=== PATIENT | female | born 1965 | race Caucasian/White ===

== ENCOUNTER 2016-11-12 08:30 | Day surgery (SDC) | payer OTHER ==
[~2016-11-12] VITALS: Ht 161.3 cm; Wt 86.0 kg
[~2016-11-12 08:30] MED LIST: BALANCED SALT SOLN 15 ML OPH IRRIG ONE; CARB15DR RIGHT EYE; CHOLESTEROL MED; FLUO5DRO RIGHT EYE; IBUP400T22 PO; MITOMYCIN OP ONE; RANI25VI IJ
--- NOTE | 2016-11-12 08:41 | HPN ---
Date/Time of Note Date/Time of Note DATE: 11/12/16 TIME: 08:41 Interval H&P Admission Note Pt. seen H&P reviewed: No system changes ADELA MENEZES MD Nov 12, 2016 08:41
[2016-11-12 09:10] VITALS: BP 137/74; PULSE 56; RESP 19; Ht 161.3 cm; Wt 86.0 kg
[2016-11-12] MEDS ORDERED: LEVO125T75 PO (09:12)
[2016-11-12] MEDS ORDERED: MELO-110 PO (09:13)
[2016-11-12] MEDS ORDERED: NOL20 PO (09:13)
[2016-11-12] MEDS ORDERED: RANI150T5 PO (09:14)
[2016-11-12] MEDS ORDERED: ERGO500037 PO (09:14)
[2016-11-12] MEDS ORDERED: GEMF600T60 PO (09:14)
[2016-11-12] MEDS ORDERED: ASPI81TA3 PO (09:15)
[2016-11-12] MEDS ORDERED: LIDOCAINE 2%/EPI 30 ML INJ ONE (09:37)
[2016-11-12] MEDS ORDERED: TETRACAINE 0.5% 4 ML OPH ONE (09:38)
[2016-11-12] MEDS ORDERED: METHYLENE BLUE 1% 10 ML INJ ONE (09:38)
[2016-11-12] MEDS ORDERED: TOBRAMYCIN/DEXAMETH 3.5 GM OPH OINT ONE ×2 (09:38→10:03)
--- NOTE | 2016-11-12 09:44 | OPR ---
Date/Time of Note Date/Time of Note DATE: 11/12/16 TIME: 09:41 Operative Report Preoperative Diagnosis pterygium left eye Postoperative Diagnosis same Operation/Procedure Performed [id number] of pterygium Surgeon: ADELA MENEZES MD Anesthesia Type: MAC Transfusion Required: no Specimen: none Grafts/Implants: none Complications: no ADELA MENEZES MD Nov 12, 2016 09:44
[2016-11-12] MEDS ORDERED: PHENYLephrine 10% 5 ML OPH RIGHT EYE ONE (09:50)
[2016-11-12] MEDS ORDERED: LIDOCAINE 2%/EPI MPF (SDV) 20 ML VIAL INJ ONE (09:50)
[2016-11-12] MEDS ORDERED: ONDANSETRON 4 MG INJ IV PRN (10:00)
[2016-11-12] MEDS ORDERED: OXYCODONE/ACETAMINOPHEN (5/325) TAB PO PRN (10:00)
[2016-11-12] MEDS ORDERED: LABETALOL HCL 20MG INJ IV PRN (10:00)
[2016-11-12] MEDS ORDERED: FENTAnyl 50 MCG/ML VIAL IV PRN (10:00)
[2016-11-12] MEDS ORDERED: HYDROmorphONE (0.2 MG/ML) 10ML SYG IV PRN (10:00)
[2016-11-12] MEDS ORDERED: hydrALAzine 20 MG INJ IV PRN (10:00)
[2016-11-12] MEDS ORDERED: DIPHENHYDRAMINE 50 MG INJ IV PRN (10:00)
[2016-11-12] MEDS ORDERED: MIDAZOLAM 1 MG/ML 2 ML INJ ONE (10:03)
[2016-11-12] MEDS ORDERED: LIDOCAINE 2% (SDV) 5 ML INJ ONE (10:03)
[2016-11-12] MEDS ORDERED: PROPOFOL 20 ML ONE (10:03)
[2016-11-12] MEDS ORDERED: FENTAnyl 50 MCG/ML VIAL ONE (10:03)
[2016-11-12] MEDS ORDERED: TOBRAMYCIN/DEXAMETH 3.5 GM OPH OINT RIGHT EYE ONE (10:22)
[2016-11-12 10:46] VITALS: BP 108/59; PULSE 52; RESP 14
[2016-11-12 10:49] VITALS: BP 108/55; PULSE 50; RESP 14
[2016-11-12 10:54] VITALS: BP 102/55; PULSE 50; RESP 14
[2016-11-12 11:20] VITALS: BP 142/75; PULSE 56; RESP 16
--- NOTE | 2016-11-12 11:49 | OPR ---
DATE OF OPERATION: 11/12/2016 SURGEON: Emma Sutherland MD LOCKER ROOM SUPERVISOR: None. ANESTHESIOLOGIST: PREOPERATIVE DIAGNOSIS: Pterygium, right eye. POSTOPERATIVE DIAGNOSIS: Pterygium, right eye. OPERATION: Excision of pterygium, right eye; application of mitomycin C; closure of defect with conjunctival advancement flaps. DESCRIPTION OF PROCEDURE: Following standard preparation and draping of the patient, a solid-blade lid speculum was placed for immobilization of the lids. A small amount of 2% Xylocaine with epinephrine was injected beneath the body of the pterygium so as to elevate it from the underlying sclerae. After adequate local anesthesia was obtained, Leonel scissors were simply used to make an incision along the edges of the pterygium, amputating the body approximately 1 cm posterior to the limbus. At the limbus, the major portion of the tissue was simply excised using sharp scissors. Using a rotating edward bur, all of the scar tissue on the cornea was removed down to clear cornea. At this point, bleeding points were secured with the heat cautery. Mitomycin C (0.2 mg/ml) was now applied to the limbal regions for three minutes. After three minutes, the eye was copiously irrigated with balanced salt solution. A peritomy was now performed both superiorly and inferiorly and relaxing incisions made at approximately the 6 and 12 o'clock positions. The undermining conjunctiva was now pulled both superiorly and inferiorly so as to close the previously made defect from which the pterygium had been removed. Sutures of interrupted 8-0 Vicryl were used and a bite of the underlying sclera was taken so as to ensure adequate maintenance of the flaps in a nonmovable position. Betadine 5% solution was placed on the eye, along with TobraDex ointment. A light pressure dressing was applied, and the patient returned to the recovery room in satisfactory condition. Dictated By: Emma Sutherland MD /rell/rick /Document#: [id number]
--- NOTE | 2016-11-13 09:58 | OPR ---
DATE OF OPERATION: 11/13/2016 SURGEON: Emma Sutherland MD HOUSE PAINTER HELPER: None. ANESTHESIOLOGIST: PREOPERATIVE DIAGNOSIS: Senile nuclear sclerotic cataract, left eye. POSTOPERATIVE DIAGNOSIS: Senile nuclear sclerotic cataract, left eye. OPERATION: Kelman phacoemulsification with implantation of intraocular lens, left eye. PROCEDURE: Following standard preparation and draping of the patient, an aspirating lid speculum was placed for immobilization of the lids. A Superblade incision was made for access into the anterior chamber. Approximately 0.5 ml of 1% unpreserved Xylocaine was instilled into the anterior chamber, and after approximately 15 seconds, this was replaced with Viscoat. A clear corneal incision was then made using the 3.2 mm keratome, following which an anterior circular capsulorrhexis was made. The major portion of the lens cortex and nucleus was then dislocated from the capsular bag using hydrodissection. The KPE tip was introduced into the eye, and controlling movements of the lens with a two-handed technique, the major portion of the lens cortex and nucleus was removed, maintaining the lens in the plane of the iris. The remaining cortical material was removed via the irrigating-aspirating instrument. The capsular bag and the anterior chamber were re-formed using Viscoat. The proper power lens was then placed within the capsular bag. The viscoelastic was then removed from the eye and the eye re-formed with balanced salt solution. One 10-0 Vicryl suture was then used to ensure closure of the corneal incision. The eye was re-formed to normal pressure using balanced salt solution. The eye and cul-de-sacs were now simply flooded with 5% Betadine solution. One drop of Vigamox and one drop of Betagan solution were instilled into the eye. A light pressure dressing was applied, and the patient was returned to the recovery room in satisfactory condition. Dictated By: Emma Sutherland MD /rell/rick /Document#: [id number]
== END 2016-11-12 12:00 | disposition home or self-care (01) ==
LOC: SDS 08:30
PROVIDERS: ATTEND Ophthalmology
DX: H11.001 Unspecified pterygium of right eye (principal); E78.5 Hyperlipidemia, unspecified
CPT/HCPCS: 65426; J2250; J3010; J9280; Z7512; Z7610

== ENCOUNTER 2016-11-26 20:11 | Emergency (ER) | payer OTHER ==
[~2016-11-26] VITALS: Ht 160 cm; Wt 87.0 kg
[~2016-11-26 20:11] MED LIST changes: +ASPI81TA3 PO; -BALANCED SALT SOLN 15 ML OPH IRRIG ONE; -CARB15DR RIGHT EYE; -CHOLESTEROL MED; +ERGO500037 PO; -FLUO5DRO RIGHT EYE; +GEMF600T60 PO; -IBUP400T22 PO; -MITOMYCIN OP ONE; +RANI150T5 PO; -RANI25VI IJ
[2016-11-26 20:56] VITALS: Ht 160 cm; Wt 87.0 kg
[2016-11-27] MEDS ORDERED: ONDANSETRON (ODT) 4 MG TAB ODT STA (00:47)
[2016-11-27] MEDS ORDERED: ACETAMINOPHEN 500 MG TAB PO STA (00:47)
--- NOTE | 2016-11-27 01:01 | ERD ---
ER Documentation Chief Complaint Date/Time DATE: 11/27/16 TIME: 00:59 Chief Complaint abd pain with n/v and headache, dizziness since yesterday HPI 51-year-old Urdu-speaking female. An scientific recruiter was used. The patient presents with multiple complaints. At triage she noted abdominal pain however she denies this currently, consider language barrier. She describes that since yesterday she has had a gradual onset bandlike headache that is diffuse with moderate pain associated with 2 episodes of nonbloody nonbilious emesis. She denies abdominal pain or diarrhea. No chest pain or shortness of breath. She also describes mild myalgias. No recent sick contacts travel or antibiotics. No rash or neck stiffness. ROS All systems reviewed and are negative except as per history of present illness. Medications Home Meds Active Scripts Ondansetron (Ondansetron Odt) 4 Mg Tab.rapdis, 4 MG PO Q6H Y for NAUSEA AND/OR VOMITING, #30 TAB Prov:CHAS CARRERA MD 11/27/16 Ibuprofen* (Motrin*) 800 Mg Tab, 800 MG PO Q6H Y for PAIN AND OR ELEVATED TEMP, #30 TAB Prov:CHAS CARRERA MD 11/27/16 Reported Medications Aspirin* (Aspirin* Chew) 81 Mg Tab.chew, 81 MG PO DAILY, TAB.CHEW 11/12/16 Gemfibrozil* (Gemfibrozil*) 600 Mg Tablet, 600 MG PO QPM, TAB 11/12/16 Ranitidine Hcl* (Ranitidine Hcl*) 150 Mg Tablet, 150 MG PO HS, #30 TAB 11/12/16 Ergocalciferol (Vitamin D2) (VITAMIN D2) 50,000 Unit Capsule, 52263 UNIT PO EVERY THURSDAY, CAP 11/12/16 Allergies Allergies: Coded Allergies: No Known Allergy (Unverified , 11/12/16) PMhx/Soc History of Surgery: Yes (C-SEC X3, RT SHPULDER SX, RY EYE PTERYGUIM SX) Anesthesia Reaction: No Hx Neurological Disorder: No Hx Respiratory Disorders: No Hx Cardiac Disorders: No Hx Psychiatric Problems: No Hx Miscellaneous Medical Probl: Yes (HIGH CHOLESTEROL) Hx Alcohol Use: No Hx Substance Use: No Hx Tobacco Use: No FmHx Family History: No diabetes Physical Exam Vitals Vital Signs Date Time Temp Pulse Resp B/P Pulse Ox O2 Delivery O2 Flow Rate FiO2 11/27/16 01:19 99.0 78 18 130/76 97 Room Air 11/26/16 20:56 99.0 62 18 130/76 97 Physical Exam General: Well developed, well nourished, no acute distress Head: Normocephalic, atraumatic. Eyes: Pupils equally reactive, EOM intact ENT: Moist mucous membranes Neck: Supple, no lymphadenopathy Respiratory: Lungs clear bilaterally, no distress Cardiovascular: RRR, no murmurs, rubs, or gallops Abdominal: Soft, non-tender, non-distended, no peritoneal signs : Deferred MSK: No edema, no unilateral swelling, 5/5 strength Neurologic: Alert and oriented, moving all extremities, normal speech, no focal weakness, no cerebellar signs, no meningismus Skin: No rash Psych: Normal mood Results 24 hrs Laboratory Tests Test 11/27/16 01:00 Urine Color STRAW Urine Clarity CLEAR Urine pH 6.0 Urine Specific [place] 1.004 Urine Ketones NEGATIVEmg/dL Urine Nitrite NEGATIVEmg/dL Urine Bilirubin NEGATIVEmg/dL Urine Urobilinogen NEGATIVEmg/dL Urine Leukocyte Esterase NEGATIVELeu/ul Urine Microscopic RBC 0/HPF Urine Microscopic WBC 1/HPF Urine Bacteria FEW/HPF Urine Hemoglobin 1+mg/dL Urine Glucose NEGATIVEmg/dL Urine Total Protein NEGATIVEmg/dl Current Medications Medications (Trade) Dose Ordered Sig/Jessie Route PRN Reason Start Time Stop Time Status Last Admin Dose Admin Acetaminophen (Tylenol Tab) 1,000 mg ONCE STAT PO 11/27/16 00:47 11/27/16 00:49 DC 11/27/16 01:10 Ondansetron HCl (Zofran Odt) 4 mg ONCE STAT ODT 11/27/16 00:47 11/27/16 00:50 DC 11/27/16 01:09 Procedures/MDM EKG, MONITORS, & DIAGNOSTIC IMAGING: CT brain: No acute intracranial process per radiology LAB INTERPRETATION: No evidence of urinary tract infection MEDICAL DECISION MAKING: The patient presents with a headache and nausea vomiting. She denies any abdominal pain and on exam she does not have any abdominal pain. Unclear why this was documented in triage. The patient's only complaint is nausea vomiting and headache. The patient's headache is unlikely related to serious etiology. The patient does not exhibit any clinical signs or symptoms, and has no risk factors to suggest headache etiology such as subarachnoid hemorrhage, acute vertebral or carotid dissection, intracranial mass, epidural, subdural hematoma , dural venous sinus thrombosis, giant cell arteritis, or pseudotumor cerebri. The patient's description is consistent with a tension type headache though she denies any stressors at home. She has no fever here but does describe mild myalgias. Consider possible mild viral process. The patient does not exhibit any signs or symptoms concerning for meningitis. No indication for lumbar puncture. A CT brain given the patient's vomiting would be appropriate to rule out mass or hemorrhage but again low clinical concern for this. ER COURSE: Tylenol and Toradol provided with improved symptoms. CT imaging negative. Urinalysis negative. The patient is safe for discharge with close primary care follow-up. I kept the patient and/or family informed of laboratory and diagnostic imaging results throughout the emergency room course. DISPOSITION PLAN: [] CONSULTATION: [] Departure Diagnosis: Primary Impression: Headache Headache type: tension-type Headache chronicity pattern: acute headache Intractability: not intractable Qualified Code: G44.209 - Acute non intractable tension-type headache Condition: Stable CHAS CARRERA MD Nov 27, 2016 01:00
[2016-11-27 01:19] VITALS: BP 130/76; PULSE 78; RESP 18; TEMP 99
--- NOTE | 2016-11-27 01:39 | RADRPT ---
PROCEDURE: Noncontrast CT Head. CLINICAL INDICATION: Headache TECHNIQUE: Noncontrast CT of the head was obtained. The administered radiation dose was CTDI vol = 45 mGy, DLP = 720 mGy-cm. COMPARISON: No pertinent prior examinations were submitted for comparison. FINDINGS: The ventricles and cortical sulci are mildly enlarged. There is mild decreased attenuation within t he periventricular and subcortical white matter compatible with chronic microvascular changes. There is no acute intracranial hemorrhage or extra-axial fluid collection. There is no mass effect . No midline shift is identified. There is no loss of pedroza-white differentiation to suggest acute in farction. The orbits are within normal limits. The paranasal sinuses are well aerated. No destructive osseous lesion is identified. IMPRESSION: No acute findings. Mild diffuse parenchymal volume loss and chronic microvascular changes. RPTAT: HIKT .Jose Ball MD, Date Time Electronically viewed and signed by .Jose Ball MD, on 11/27/2016 01:39 .T/
[2016-11-27 02:07] LABS: ADD UMIC YES; UR ASCORBIC ACID NEGATIVE (NEGATIVE); UR BACTERIA FEW /HPF (NONE SEEN); UR BILIRUBIN (Dip) NEGATIVE (NEGATIVE); UR BLOOD (Dip) 1+ mg/dL (NEGATIVE); UR CLARITY CLEAR (CLEAR); UR COLOR STRAW (YELLOW); UR GLUCOSE (Dip) NEGATIVE (NEGATIVE); UR KETONES (Dip) NEGATIVE (NEGATIVE); UR LEUKOCYTE ESTERASE (Dip) NEGATIVE Leu/ul (NEGATIVE); UR NITRITE (Dip) NEGATIVE (NEGATIVE); UR RBC 0 /HPF (0-5); UR SPECIFIC GRAVITY (Dip) 1.004 (1.003-1.030); UR TOTAL PROTEIN (Dip) NEGATIVE (NEGATIVE); UR UROBILINOGEN (Dip) NEGATIVE (NEGATIVE)
[2016-11-27] MEDS ORDERED: KETOROLAC 15 MG INJ IV STA (02:35)
[2016-11-27] MEDS ORDERED: IBUP800T25 PO (02:36)
[2016-11-27] MEDS ORDERED: ONDA4TAB14 PO (02:36)
== END 2016-11-27 03:08 | disposition home or self-care (01) ==
LOC: E/R 20:11
DX: R51 Headache (principal); R11.2 Nausea with vomiting, unspecified; Z79.82 Long term (current) use of aspirin
CPT/HCPCS: 70450; 81001; 96374; J1885; Z7502; Z7610

== ENCOUNTER 2017-12-25 07:36 | Day surgery (SDC) | END 2017-12-25 15:00 | disposition home or self-care (01) ==